=== PATIENT | female | born 1970 | race African-American/Black ===

== ENCOUNTER 2024-08-22 10:32 | Emergency (ER) | payer BC, MEDICAID ==
[~2024-08-22] VITALS: Ht 170.2 cm; Wt 81.0 kg
[2024-08-22 10:35] VITALS: O2SAT 99
[2024-08-22 11:49] LABS: BASOPHILS % 0.3 % (0.0-2.0); DIFFERENTIAL COMMENT 0; EOSINOPHILS % 0.7 % (0.0-5.0); HEMATOCRIT. 35.7 % (36.0-48.0); LYMPHOCYTES % 12.6 % (20.0-50.0); MEAN CORPUSCULAR HEMOGLOBIN 24.2 pg (28.0-32.0); MEAN CORPUSCULAR HGB CONC 30.7 g/dL (31.0-37.0); MEAN PLATELET VOLUME 9.2 fl (7.4-10.4); MONOCYTES % 6.2 % (2.0-8.0); NEUTROPHILS % 80.2 % (40.0-76.0); PLATELET 213 x1000/uL (130-400); RED BLOOD CELL COUNT 4.52 mill/uL (4.2-5.4); RED CELL DISTRIBUTION WIDTH 14.3 % (11.6-14.6); WHITE BLOOD COUNT 8.2 x1000/uL (4.5-11.0)
[2024-08-22] MEDS: LEVETIRACETAM 1000MG PREMIX 100 ML IV STA (11:50)
[2024-08-22 11:57] LABS: CHLORIDE 107 mEq/L (98-107); POTASSIUM 4.8 mEq/L (3.5-5.1); SODIUM 138 mEq/L (136-145)
[2024-08-22 11:58] LABS: CALCIUM 9.4 mg/dL (8.7-10.4); CARBON DIOXIDE 22 mEq/L (21-32)
[2024-08-22 12:02] LABS: CREATININE 0.8 mg/dL (0.6-1.0)
[2024-08-22 12:03] LABS: GLUCOSE 97 mg/dL (70-105); UREA NITROGEN BLOOD 14 mg/dL (9-23)
[2024-08-22 12:04] LABS: ALANINE AMINOTRANSFERASE 9 IU/L (10-49)
[2024-08-22 12:05] LABS: ALBUMIN 3.9 g/dL (3.2-4.8); ASPARTATE AMINOTRANSFERASE 23 IU/L (<34); BILIRUBIN DIRECT 0.1 mg/dL (<=3.0); BILIRUBIN TOTAL 0.7 mg/dL (0.1-1.0); PHOSPHORUS 4.1 mg/dL (2.5-4.9); PROTEIN TOTAL 7.4 g/dL (6.0-8.3)
[2024-08-22 12:08] LABS: HCG SCREEN NEGATIVE
[2024-08-22 12:09] LABS: TROPONIN I HIGH SENSITIVITY < 4 ng/L (3.0-34)
[2024-08-22 13:00] VITALS: TEMP 37.00296
[2024-08-22] MEDS ORDERED: TOPI-95 MT (17:09)
[2024-08-22 18:27] VITALS: BP 126/78; PULSE 70; RESP 15; O2SAT 99
== END 2024-08-22 18:28 | disposition home or self-care (01) ==
LOC: ER 10:32
DX: R56.9 Unspecified convulsions (principal)
CPT/HCPCS: 99284; 96365; 80076; 80048; 84703; 83735; 84100; 85025; 84484; 36415; 93005; J1953